=== PATIENT | male | born 1975 | race Caucasian/White ===

== ENCOUNTER 2016-09-25 19:07 | Emergency (ER) | payer MEDICAID ==
[~2016-09-25] VITALS: Ht 172.7 cm; Wt 73.8 kg
[~2016-09-25 19:07] MED LIST: CYCL-36 PO; IBUP800T23 PO; PERC5TAB12 PO
[2016-09-25 19:11] VITALS: BP 115/82; PULSE 68; RESP 16; TEMP 98.2; O2SAT 97
[2016-09-25] MEDS ORDERED: CEPHALEXIN MONOHYDRATE 500 MG CAP PO ONE (19:30)
[2016-09-25] MEDS ORDERED: TETANUS/DIPHTHERIA TOXOID ADULT 0.5 ML VIAL IM ONE (19:30)
[2016-09-25] MEDS ORDERED: SULFAMETHOXAZOLE-TRIMETHOPRIM DS 800-160 MG TAB PO ONE (19:30)
[2016-09-25] MEDS ORDERED: IBUPROFEN 800 MG TAB PO ONE (19:30)
--- NOTE | 2016-09-25 19:31 | PD ---
HPI Chief Complaint: Laceration/Skin Injury Time Seen by Provider: 19:31 Travel History International Travel<30 days: No Contact w/Intl Traveler<30days: No Traveled to known affect area: No History of Present Illness HPI 41-year-old male penis emergency Department with a laceration to the left proximal volar forearm while working on a piece of plastic with a razor blade. Patient has fixed the wound itself with butterflies and Tegaderm with very good approximation and treatment. He is here because he has increased swelling and pain at the site and some numbness into the left fourth and fifth digits. He is moderate pain in the area as well of a 4/10 with exertion. He has full range of motion in the elbow, forearm, wrist, and hand. He is unsure of his last tetanus shot. He has no other complaints. PFSH Past Medical History Diminished Hearing: No Tetanus Vaccination: Unknown Influenza Vaccination: No ?: Not Social History Alcohol Use: No Tobacco Use: No Substance Use: No Allergies-Medications (Allergen,Severity, Reaction): Coded Allergies: No Known Allergies (Unverified , 09/25/16) Reported Meds & Prescriptions Reported Meds & Active Scripts Active Percocet 5-325 mg (Oxycodone/Acetaminophen) Oxycodone 5/325 Acetaminophen Tab 1- 2 Tab PO Q4-6H PRN Ibuprofen 800 Mg Tab 800 Mg PO Q6H PRN Flexeril (Cyclobenzaprine HCl) 10 Mg Tab 10 Mg PO TID PRN Review of Systems Except as stated in HPI: all other systems reviewed are Neg General / Constitutional: No: Fever Eyes: No: Visual changes HENT: No: Headaches Cardiovascular: No: Chest Pain or Discomfort Respiratory: No: Shortness of Breath Gastrointestinal: No: Abdominal Pain Genitourinary: No: Dysuria Musculoskeletal: No: Pain Skin: No Rash Neurologic: No: Weakness Psychiatric: No: Depression Endocrine: No: Polydipsia Hematologic/Lymphatic: No: Easy Bruising Physical Exam Narrative GENERAL: Patient appears in no acute distress. SKIN: Warm and dry. Normal color. Normal turgor. Patient has a 1 cm laceration to the proximal left volar forearm which he is approximated himself with butterfly bandages covered with Tegaderm. The repair is excellent. HEAD: Atraumatic. Normocephalic. EYES: Pupils equal and round. No scleral icterus. No injection or drainage. ENT: No nasal bleeding or discharge. Mucous membranes pink and moist. Pharynx is normal. NECK: Trachea midline. Neck is supple nontender. CARDIOVASCULAR: Regular rate and rhythm. RESPIRATORY: No accessory muscle use. Clear to auscultation. Breath sounds equal bilaterally. GASTROINTESTINAL: Abdomen soft, non-tender, nondistended. Hepatic and splenic margins not palpable. MUSCULOSKELETAL: Extremities without clubbing, cyanosis, or edema. No obvious deformities. Patient has mild tenderness over the laceration site, which is exacerbated by gripping and flexion of the fingers and wrist. Patient states mild tingling in the fourth and fifth digits of the left hand. He has no weakness or decreased range of motion or loss of function. NEUROLOGICAL: Awake and alert. No obvious cranial nerve deficits. Motor grossly within normal limits. Five out of 5 muscle strength in the arms and legs. Normal speech. PSYCHIATRIC: Appropriate mood and affect; insight and judgment normal. Data Data Last Documented VS Vital Signs Date Time Temp Pulse Resp B/P Pulse Ox O2 Delivery O2 Flow Rate FiO2 09/25/16 19:11 98.2 68 16 115/82 97 Orders Sulfamet-Trimeth Ds 800-160 Mg (Bactrim (09/25/16 19:30) Cephalexin (Keflex) (09/25/16 19:30) Tetanus/Diphtheria Tox Adult (Tetanus/Di (09/25/16 19:30) Ibuprofen (Motrin) (09/25/16 19:30) MDM Medical Decision Making Medical Screen Exam Complete: Yes Emergency Medical Condition: Yes Differential Diagnosis Left arm laceration. Need for tetanus. Risk for infection. Narrative Course Wound was previously repaired by the patient and not felt to warrant further medical attention. Patient is given a tetanus IM booster. Patient is given his first dose of Bactrim DS by mouth as well as Keflex 500 mg by mouth. Patient is given ibuprofen 800 mg by mouth. Forearm is wrapped with an Ac bandage. Wound care is discussed. Patient is to continue with Bactrim DS twice a day 7 days. Patient is to continue with Keflex 500 mg 3 times a day 7 days. Patient is given ibuprofen 600 mg 4 times a day when necessary #40. Patient should wear the Ac bandage for the next several days to help with swelling and pain. Patient should follow-up with his primary care physician or return to emergency department worsening symptoms as discussed. Diagnosis Primary Impression: Laceration of left upper arm Qualified Code: S41.112A - Laceration of left upper arm, initial encounter Referrals: Primary Care Physician Patient Instructions: General Instructions, Laceration (ED), Tetanus (DC) Additional Instructions: Wound was previously repaired by the patient and not felt to warrant further medical attention. Patient is given a tetanus IM booster. Patient is given his first dose of Bactrim DS by mouth as well as Keflex 500 mg by mouth. Patient is given ibuprofen 800 mg by mouth. Forearm is wrapped with an Ac bandage. Wound care is discussed. Patient is to continue with Bactrim DS twice a day 7 days. Patient is to continue with Keflex 500 mg 3 times a day 7 days. Patient is given ibuprofen 600 mg 4 times a day when necessary #40. Patient should wear the Ac bandage for the next several days to help with swelling and pain. Patient should follow-up with his primary care physician or return to emergency department worsening symptoms as discussed. Med/Other Pt SpecificInfo: Prescription(s) given Disposition: 01 DISCHARGE HOME Condition: Stable Elmer Egan September 25, 2016 19:31
[2016-09-25] MEDS ORDERED: CEPH-460 PO (19:55)
[2016-09-25] MEDS ORDERED: BACT800T5 PO (19:55)
[2016-09-25] MEDS ORDERED: IBUP-232 PO (19:55)
== END 2016-09-25 20:07 | disposition home or self-care (01) ==
LOC: PHEFT 19:07
DX: S41.112A Laceration without foreign body of left upper arm, initial encounter (principal); Z23 Encounter for immunization; W26.8XXA Contact with other sharp object(s), not elsewhere classified, initial encounter; Y93.9 Activity, unspecified; Y92.9 Unspecified place or not applicable; Y99.9 Unspecified external cause status
CPT/HCPCS: 90471; 90714

== ENCOUNTER 2017-01-16 18:00 | Emergency (ER) | payer MEDICAID ==
[~2017-01-16] VITALS: Ht 172.7 cm; Wt 69.9 kg
[~2017-01-16 18:00] MED LIST changes: +BACT800T5 PO; +CEPH-460 PO; +IBUP-232 PO
[2017-01-16 18:12] VITALS: BP 114/73; PULSE 74; RESP 16; TEMP 98.3; O2SAT 97
[2017-01-16 19:00] VITALS: BP 110/74; PULSE 74; RESP 18; O2SAT 100
--- NOTE | 2017-01-16 19:10 | PD ---
HPI Chief Complaint: Respiratory Symptoms Time Seen by Provider: 19:02 Travel History International Travel<30 days: No Contact w/Intl Traveler<30days: No Traveled to known affect area: No History of Present Illness HPI The patient is a 41-year-old male with no known history of lung disease who complains of cough productive of yellow and green sputum, sweats and chills but he has not recorded a fever at home. He is a non-smoker. He has some chest tightness with deep breathing. He has noticed some mild wheezing during the day and has used his son's nebulizer machine with slight relief. He denies any hemoptysis. PFSH Past Medical History Medical History: Denies Significant Hx Diminished Hearing: No Influenza Vaccination: No ?: Not Past Surgical History Surgical History: No Previous Surgery Social History Alcohol Use: No Tobacco Use: No Substance Use: No Allergies-Medications (Allergen,Severity, Reaction): Coded Allergies: No Known Allergies (Unverified , 09/25/16) Reported Meds & Prescriptions Reported Meds & Active Scripts Active Azithromycin 500 Mg Tab 500 Mg PO DAILY Keflex (Cephalexin) 500 Mg Capsule 500 Mg PO QID 10 Days Keflex (Cephalexin) 500 Mg Cap 500 Mg PO Q8H Ibuprofen 600 Mg Tab 600 Mg PO Q6H PRN Bactrim DS (Sulfamethoxazole-Trimethoprim) 800-160 Mg Tab 1 Tab PO BID Percocet 5-325 mg (Oxycodone/Acetaminophen) Oxycodone 5/325 Acetaminophen Tab 1- 2 Tab PO Q4-6H PRN Ibuprofen 800 Mg Tab 800 Mg PO Q6H PRN Flexeril (Cyclobenzaprine HCl) 10 Mg Tab 10 Mg PO TID PRN Review of Systems Except as stated in HPI: all other systems reviewed are Neg Physical Exam Narrative GENERAL: The patient is alert, oriented 3 in no respiratory distress. His vital signs are normal. SKIN: Focused skin assessment warm/dry. HEAD: Atraumatic. Normocephalic. EYES: Pupils equal and round. No scleral icterus. No injection or drainage. ENT: No nasal bleeding or discharge. Mucous membranes pink and moist. NECK: Trachea midline. No JVD. CARDIOVASCULAR: Regular rate and rhythm. No murmur appreciated. RESPIRATORY: No accessory muscle use. A few widely scattered wheezes and rhonchi are heard with expiration. Breath sounds equal bilaterally. GASTROINTESTINAL: Abdomen soft, non-tender, nondistended. Hepatic and splenic margins not palpable. MUSCULOSKELETAL: No obvious deformities. No clubbing. No cyanosis. No edema. NEUROLOGICAL: Awake and alert. No obvious cranial nerve deficits. Motor grossly within normal limits. Normal speech. PSYCHIATRIC: Appropriate mood and affect; insight and judgment normal. Data Data Last Documented VS Vital Signs Date Time Temp Pulse Resp B/P (MAP) Pulse Ox O2 Delivery O2 Flow Rate FiO2 01/16/17 18:12 98.3 74 16 114/73 (87) 97 Orders Orders Chest, Pa & Lat (01/16/17 19:10) Sodium Chloride 0.9% Flush (Ns Flush) (01/16/17 20:00) Ceftriaxone Inj (Rocephin Inj) (01/16/17 20:00) Azithromycin Inj (Zithromax Inj) (01/16/17 20:00) [facility] Medical Decision Making Medical Screen Exam Complete: Yes Emergency Medical Condition: Yes Medical Record Reviewed: Yes Interpretation(s) The chest x-ray shows a nonspecific area parenchymal and solid patient in the left lower lung suggestive of pneumonia. Differential Diagnosis Pneumonia, bronchitis, asthma Narrative Course The patient appears to have an early pneumonia. The patient will be put on azithromycin and Keflex and given a shot of Rocephin and azithromycin here. If he does not get better in several days he should return and be reevaluated for possible admission. He should follow-up with a primary care physician next week. He should rest and increase liquids. Diagnosis Primary Impression: Left lower lobe pneumonia Additional Instructions: If you do not get better, or if you get worse in 3 or 4 days you can return to emergency department for reevaluation regarding possible admission. The Zithromax is one tablet daily for 5 days and the Keflex is one tablet 4 times a day for 10 days. Med/Other Pt SpecificInfo: Prescription(s) given Scripts Azithromycin (Azithromycin) 500 Mg Tab 500 MG PO DAILY for Infection, #5 TAB 0 Refills Prov: Ciaran Batista MD 01/16/17 Cephalexin (Keflex) 500 Mg Capsule 500 MG PO QID for Infection for 10 Days, CAP 0 Refills Prov: Ciaran Batista MD 01/16/17 Disposition: 01 DISCHARGE HOME Condition: Stable Ciaran Batista MD Jan 16, 2017 19:10
--- NOTE | 2017-01-16 19:54 | RADRPT ---
EXAM DATE/TIME: 01/16/2017 19:36 [facility] COMPARISON: No previous studies available for comparison. INDICATIONS : Cough and tightness in chest. MEDICAL HISTORY : None. SURGICAL HISTORY : None. ENCOUNTER: Initial ACUITY: 1 day PAIN SCORE: 5/10 LOCATION: Bilateral chest FINDINGS: PA and lateral views of the chest demonstrates a nonspecific area of parenchymal consolidation in the left lower lung. The right lung is grossly clear. No pleural effusions. No pulmonary edema.. The ca rdiomediastinal contours are unremarkable. Osseous structures are intact. CONCLUSION: Nonspecific area of parenchymal consolidation the left lower lung suggestive of an inflammatory proce ss such as pneumonia. Recommend a followup chest x-ray in 2-3 weeks after appropriate medical therapy to ensure resolution. If infiltrate does not resolve after appropriate medical therapy, then a CT th orax can be performed without contrast. Bertin Ling MD on January 16, 2017 at 19:50 Board Certified Radiologist. This report was verified electronically.
[2017-01-16] MEDS ORDERED: SODIUM CHLORIDE 0.9% FLUSH 10 ML FLUSH IVF PRN (20:00)
[2017-01-16] MEDS ORDERED: cefTRIAXone INJ 1,000 MG in SODIUM CHLORIDE 0.9% INJ 100 ML IV ONE (20:00)
[2017-01-16] MEDS ORDERED: AZITHROMYCIN INJ 500 MG in SODIUM CHLOR 0.9% 250 ML INJ 250 ML IV ONE (20:00)
[2017-01-16] MEDS ORDERED: AZIT500T2 PO (20:06)
[2017-01-16] MEDS ORDERED: CEPH-460 PO (20:06)
[2017-01-16 21:00] VITALS: BP 118/73; PULSE 72; RESP 18; O2SAT 98
[2017-01-16 22:28] VITALS: BP 118/74
== END 2017-01-16 22:32 | disposition home or self-care (01) ==
LOC: PHED 18:00
DX: J18.9 Pneumonia, unspecified organism (principal); J98.4 Other disorders of lung
CPT/HCPCS: 71020; 96365; 96367; 99284; J0456; J0696; J7050